=== PATIENT | female | born 1985 | race Caucasian/White ===

== ENCOUNTER 2017-10-31 00:21 | Day surgery (SDC) | payer OTHER ==
[~2017-10-31] VITALS: Ht 160 cm; Wt 62.6 kg
[2017-10-31] VITALS (7 sets, daily range): BP systolic 103–130; BP diastolic 75–94
[~2017-10-31 00:21] MED LIST: CETI10CA8 PO; DIPH-740 PO; FEXO-67 PO; KERATIN PO; MULT1CAP59 PO; NORE0.3536 PO; NORG1TAB96 PO; OXYC-865 PO; VITAMIN B6 PO
[2017-10-31] MEDS ORDERED: ceFAZolin(*) 2GM/D5W 50ML 50 ML IVPB ONE (08:55)
[2017-10-31 08:57] LABS: PLATELET COUNT, AUTOMATED 248 K/uL (150-450)
[2017-10-31] MEDS ORDERED: NORMOSOL R SOLN(*) 1000 ML BAG 1,000 ML IV PRN (09:00)
[2017-10-31] MEDS ORDERED: LIDOCAINE/SOD BICARB 8.4% SYR ID ONE (09:00)
[2017-10-31] MEDS ORDERED: FAMOTIDINE 20 MG TAB PO ONE (09:00)
[2017-10-31] MEDS ORDERED: MIDAZOLAM 2 MG/2 ML VIAL IVP PRN (09:00)
[2017-10-31] MEDS ORDERED: fentaNYL CITR 100 MCG/2 ML AMP ONE ×4 (09:05→11:02)
[2017-10-31] MEDS ORDERED: PROPOFOL EMUL(*) 10MG/ML 20 ML 20 ML ONE (09:07)
[2017-10-31] MEDS ORDERED: LIDOCAINE MPF 1% 5 ML VIAL ONE (09:07)
[2017-10-31] MEDS ORDERED: OXYMETAZOLINE SPRAY 15 ML BTL ONE (09:37)
[2017-10-31] MEDS ORDERED: BACITRACIN OINT 15 GM TUBE TP ONE (09:37)
[2017-10-31] MEDS ORDERED: MUPIROCIN 2% OINT 22 GM TUBE TP ONE (09:37)
[2017-10-31] MEDS ORDERED: LIDO/EPI 1% MDV 1:100,000 20ML INFIL ONE (09:37)
[2017-10-31] MEDS ORDERED: DEXAMETHASONE SOD 4 MG/ML VIAL ONE (09:49)
[2017-10-31] MEDS ORDERED: ONDANSETRON 4 MG/2 ML VIAL ONE ×2 (09:52→10:48)
[2017-10-31] MEDS ORDERED: NS(*) 0.9% 250 ML BAG 250 ML ONE (09:55)
[2017-10-31] MEDS ORDERED: CEFU500T10 PO (10:42)
[2017-10-31] MEDS ORDERED: HYDR-4309 PO (10:42)
[2017-10-31] MEDS ORDERED: DEXAMETHASONE SOD PHOS 10MG/ML ONE (10:47)
[2017-10-31] MEDS ORDERED: MEPERIDINE 50 MG/ML SYR ONE (10:49)
[2017-10-31] MEDS ORDERED: APAP/HYDROCODONE 325/5 TAB ONE (11:14)
[2017-10-31] MEDS ORDERED: APAP/HYDROCODONE 325/5 TAB PO ONE (13:35)
--- NOTE | 2017-11-01 13:36 | OPERATIVE REPORT 1 ---
EVENT DATE: October 31, 2017 SURGEON: John Oakes MD ANESTHESIOLOGIST: Dagoberto Kennedy MD ANESTHESIA: LMA. PROCEDURES PERFORMED 1. Septoplasty. 2. Submucous resection of bilateral inferior turbinates. PREOPERATIVE DIAGNOSES 1. Nasal septal deviation. 2. Bilateral inferior turbinate hypertrophy. POSTOPERATIVE DIAGNOSES 1. Nasal septal deviation. 2. Bilateral inferior turbinate hypertrophy. INDICATIONS Please refer to the preoperative note. DESCRIPTION OF PROCEDURE The patient was positively identified in the preoperative area. She was there alone. Risks again explained included, but not limited to bleeding, infection, nasal septal perforation, and those associated with anesthesia. She acknowledged understanding of those risks. She was then brought back to the operative suite, placed supine on the operative table, and anesthesia was administered. Once asleep, the patient was positioned and prepped and draped in the usual sterile fashion. I initially decongested the nose by injecting approximately 10 mL of 1% lidocaine with epinephrine into the bilateral anterior nasal septal mucosa and along the face at the bilateral inferior turbinates. Both nasal cavities were subsequently packed with cottonoids containing Afrin solution. These were subsequently removed, and nasal endoscopy was performed. This was notable for a severe left nasal septal deviation. I began with the septoplasty. A [place] incision was made at the base of the left anterior nasal septal mucosa. A subperichondrial flap was elevated. An incision was then made into the anterior nasal septal cartilage approximately 5 mm posterior to the original [place] incision. A contralateral flap was raised. The deviated portion of the patient's nasal septal cartilage and bone was then removed. The [place] incision was then reapproximated with interrupted chronic stitch. I then addressed the inferior turbinates. A stab incision was made at the base of the left inferior turbinate. A Pebbles elevator was utilized to elevate the mucosa off the underlying bone. A submucous resection was performed with the turbinate blade of the microdebrider. The stab incision was then cauterized with suction Bovie electrocautery. The contralateral inferior turbinate was addressed in a similar fashion. Bilateral nasal septal splints were then placed and secured to the columella with suture. The patient was then turned to Anesthesia for emergence. Estimated blood loss 25 mL. No complications. MTDD
[2017-11-01] MEDS ORDERED: ONDA4TAB PO (16:37)
== END 2017-10-31 11:30 | disposition home or self-care (01) ==
LOC: OR 00:21
PROVIDERS: ATTEND Otolaryngology
DX: J34.2 Deviated nasal septum (principal); J34.3 Hypertrophy of nasal turbinates; Z87.442 Personal history of urinary calculi
CPT/HCPCS: 30140; 30520; 36415; 84703; 85025; C1726; C1769; C1887; J1100; J2001; J2175; J2405; J2704; J3010; J7050; J0690